=== PATIENT | male | born 1945 | race Caucasian/White ===

== ENCOUNTER → 2023-10-25 09:18 | Day surgery (SDC) | payer MEDICARE, BC, SELFPAY ==
[2023-10-25 10:22] LABS: Glucose - Point of Care 176 mg/dl (70-99)
== END ==
LOC: CATH 09:18
PROVIDERS: ATTENDING PHYSICIAN Internal Medicine; FAMILY PHYSICIAN Internal Medicine; OTHER PHYSICIAN Internal Medicine Cardiovascular Disease
DX: I48.19 Other persistent atrial fibrillation (principal); I48.92 Unspecified atrial flutter; R06.00 Dyspnea, unspecified; I35.0 Nonrheumatic aortic (valve) stenosis; I10 Essential (primary) hypertension; E78.2 Mixed hyperlipidemia; E11.9 Type 2 diabetes mellitus without complications; G47.33 Obstructive sleep apnea (adult) (pediatric); Z79.01 Long term (current) use of anticoagulants
CPT/HCPCS: 82962; 92960; 93005

== ENCOUNTER → 2024-03-06 06:45 | Outpatient (REF) | payer MEDICARE, BC, SELFPAY ==
[2024-03-06 07:57] LABS: % Basophils 0.6 % (0-2); % Eosinophils 3.4 % (0-6); % Immature Granulocytes 2.2 % (0-0.5); % Lymphocytes 14.6 % (20.5-51.1); % Monocytes 10.9 % (1.7-9.3); % Neutrophils 68.3 % (42.2-75.2); Absolute Basophils 0.1 10^3/uL (0-0.2); Absolute Eosinophils 0.3 10^3/uL (0-0.7); Absolute Immature Granulocytes 0.2 10^3/uL (0-0.05); Absolute Lymphocytes 1.1 10^3/uL (1.2-3.4); Absolute Monocytes 0.9 10^3/uL (0.1-0.6); Absolute Neutrophils 5.4 10^3/uL (1.4-6.5); Hematocrit 33.4 % (39.0-52.0); Hemoglobin 11.2 g/dL (13.0-18.0); Mean Corp Hgb Conc. 33.5 g/dL (33.0-37.0); Mean Corpuscular Hgb 31.8 pg (27.0-31.0); Mean Corpuscular Volume 94.9 fL (80.0-94.0); Mean Platelet Volume 11.1 fL (7.4-10.4); Nucleated Red Blood Cells % 0 % (-); Platelet Count 223 10^3/uL (130-400); Red Blood Cell Count 3.52 10^6/uL (4.70-6.10); Red Cell Dist. Width 14.2 % (11.5-14.5); White Blood Cell Count 7.8 10^3/uL (4.8-10.8)
[2024-03-06 08:49] LABS: ALT (SGPT) 27 U/L (0-50); AST (SGOT) 25 U/L (17-59); Albumin 4.4 g/dl (3.5-5.0); Alkaline Phosphatase 98 U/L (38-126); Blood Urea Nitrogen 34 mg/dl (9-20); Calcium 9.6 mg/dl (8.4-10.2); Carbon Dioxide 19 mmol/L (22-30); Chloride 110 mmol/L (98-107); Glucose 120 mg/dl (70-99); HDL Cholesterol 35 mg/dl; LDL Cholesterol, Calculated 64 mg/dl; Potassium 4.2 mmol/L (3.5-5.1); Sodium 142 mmol/L (135-145); Total Bilirubin 0.9 mg/dl (0.2-1.3); Total Cholesterol 111 mg/dl (50-199); Total Protein 7.5 g/dl (6.3-8.2); Triglyceride 63 mg/dl (10-149); Very Low Density Lipoprotein 12 mg/dl (0-30); eGFR > 60.00
[2024-03-06 09:34] LABS: Glycohemoglobin (HgbA1c) 6.8 % (4.0-5.6)
[2024-03-07 11:31] LABS: PSA Total 0.6 ng/mL (0.0-4.0)
== END ==
LOC: REG 06:45
PROVIDERS: ATTENDING PHYSICIAN Internal Medicine
DX: E11.9 Type 2 diabetes mellitus without complications (principal); D64.9 Anemia, unspecified; E78.2 Mixed hyperlipidemia; C61 Malignant neoplasm of prostate
CPT/HCPCS: 36415; 80053; 80061; 82728; 83036; 84153; 84154; 85025

== ENCOUNTER → 2024-06-24 06:36 | Outpatient (REF) | payer MEDICARE, BC, SELFPAY ==
[2024-06-24 07:38] LABS: % Basophils 0.8 % (0-2); % Immature Granulocytes 3.6 % (0-0.5); % Lymphocytes 16.2 % (20.5-51.1); % Monocytes 11.7 % (1.7-9.3); % Neutrophils 64.7 % (42.2-75.2); Absolute Basophils 0.1 10^3/uL (0-0.2); Absolute Eosinophils 0.3 10^3/uL (0-0.7); Absolute Immature Granulocytes 0.3 10^3/uL (0-0.05); Absolute Lymphocytes 1.3 10^3/uL (1.2-3.4); Absolute Neutrophils 5.3 10^3/uL (1.4-6.5); Hematocrit 31.5 % (39.0-52.0); Hemoglobin 10.4 g/dL (13.0-18.0); Mean Corpuscular Hgb 32.1 pg (27.0-31.0); Mean Corpuscular Volume 97.2 fL (80.0-94.0); Mean Platelet Volume 11.2 fL (7.4-10.4); Nucleated Red Blood Cells % 0 % (-); Platelet Count 247 10^3/uL (130-400); Red Blood Cell Count 3.24 10^6/uL (4.70-6.10); Red Cell Dist. Width 13.7 % (11.5-14.5); White Blood Cell Count 8.3 10^3/uL (4.8-10.8)
[2024-06-24 08:08] LABS: AST (SGOT) 30 U/L (17-59); Albumin 4.4 g/dl (3.5-5.0); Alkaline Phosphatase 93 U/L (38-126); Blood Urea Nitrogen 48 mg/dl (9-20); Calcium 9.8 mg/dl (8.4-10.2); Carbon Dioxide 18 mmol/L (22-30); Chloride 108 mmol/L (98-107); Glucose 131 mg/dl (70-99); HDL Cholesterol 31 mg/dl; LDL Cholesterol, Calculated 77 mg/dl; Potassium 5.6 mmol/L (3.5-5.1); Sodium 143 mmol/L (135-145); Total Bilirubin 0.9 mg/dl (0.2-1.3); Total Cholesterol 127 mg/dl (50-199); Total Protein 7.5 g/dl (6.3-8.2); Triglyceride 96 mg/dl (10-149); Very Low Density Lipoprotein 19 mg/dl (0-30); eGFR 51.13
[2024-06-24 08:19] LABS: ALT (SGPT) 28 U/L (0-50)
[2024-06-24 08:45] LABS: Microalbumin, Random Urine 2.1 mg/dl (0.6-1.7); Microalbumin/creatinine Ratio 26.4 mg/g
[2024-06-24 11:28] LABS: Glycohemoglobin (HgbA1c) 6.4 % (4.0-5.6)
== END ==
LOC: REG 06:36
PROVIDERS: ATTENDING PHYSICIAN Internal Medicine; REFERRING PHYSICIAN Student in an Organized Health Care Education/Training Program
DX: I10 Essential (primary) hypertension (principal); E11.9 Type 2 diabetes mellitus without complications; E78.2 Mixed hyperlipidemia; D64.9 Anemia, unspecified
CPT/HCPCS: 36415; 80053; 80061; 82043; 82570; 82728; 83036; 85025

== ENCOUNTER → 2024-08-01 07:38 | Outpatient (REF) | payer MEDICARE, BC, SELFPAY ==
[2024-08-01 09:46] LABS: % Basophils 0.8 % (0-2); % Immature Granulocytes 2.4 % (0-0.5); % Lymphocytes 15.3 % (20.5-51.1); % Monocytes 11.9 % (1.7-9.3); % Neutrophils 66.6 % (42.2-75.2); Absolute Basophils 0.1 10^3/uL (0-0.2); Absolute Eosinophils 0.2 10^3/uL (0-0.7); Absolute Immature Granulocytes 0.2 10^3/uL (0-0.05); Absolute Lymphocytes 1.1 10^3/uL (1.2-3.4); Absolute Monocytes 0.9 10^3/uL (0.1-0.6); Absolute Neutrophils 4.9 10^3/uL (1.4-6.5); Hematocrit 30.6 % (39.0-52.0); Hemoglobin 10.3 g/dL (13.0-18.0); Mean Corp Hgb Conc. 33.7 g/dL (33.0-37.0); Mean Corpuscular Hgb 33.9 pg (27.0-31.0); Mean Corpuscular Volume 100.7 fL (80.0-94.0); Mean Platelet Volume 11.7 fL (7.4-10.4); Nucleated Red Blood Cells % 0 % (-); Platelet Count 209 10^3/uL (130-400); Red Blood Cell Count 3.04 10^6/uL (4.70-6.10); Red Cell Dist. Width 13.3 % (11.5-14.5); Reticulocyte Count 1.5 % (0.4-2.8); White Blood Cell Count 7.4 10^3/uL (4.8-10.8)
[2024-08-01 10:55] LABS: Erythrocyte Sed Rate 60 mm/hour (0-20)
[2024-08-01 11:49] LABS: ALT (SGPT) 31 U/L (0-50); AST (SGOT) 30 U/L (17-59); Albumin 4.2 g/dl (3.5-5.0); Alkaline Phosphatase 93 U/L (38-126); Direct Bilirubin 0.2 mg/dl (0.0-0.4); LDH 167 U/L (120-246); Total Bilirubin 0.6 mg/dl (0.2-1.3); Total Protein 7.1 g/dl (6.3-8.2)
[2024-08-01 12:46] LABS: Folate > 20.0 ng/ml (2.76-20); Vitamin B12 588 pg/ml (239-931)
[2024-08-02 11:43] LABS: Erythropoietin (EPO) 7 mU/mL (4-27)
[2024-08-02 22:23] LABS: Haptoglobin 135 mg/dL (30-200)
[2024-08-04 10:07] LABS: Methylmalonic Acid 0.29 umol/L (0.00-0.40)
== END ==
LOC: REG 07:38
PROVIDERS: ATTENDING PHYSICIAN Internal Medicine Hematology & Oncology; FAMILY PHYSICIAN Internal Medicine; REFERRING PHYSICIAN Student in an Organized Health Care Education/Training Program
DX: D64.9 Anemia, unspecified (principal); Z79.899 Other long term (current) drug therapy
CPT/HCPCS: 36415; 80076; 82607; 82668; 82746; 83010; 83615; 83921; 85025; 85045; 85652; 86880

== ENCOUNTER → 2024-08-02 09:30 | Day surgery (SDC) | payer MEDICARE, BC, SELFPAY | LOC: CATH 09:30 | PROVIDERS: ATTENDING PHYSICIAN Student in an Organized Health Care Education/Training Program; FAMILY PHYSICIAN Internal Medicine | DX: I48.19 Other persistent atrial fibrillation (principal); I10 Essential (primary) hypertension; E78.2 Mixed hyperlipidemia; I35.0 Nonrheumatic aortic (valve) stenosis; E11.9 Type 2 diabetes mellitus without complications; G47.33 Obstructive sleep apnea (adult) (pediatric); N40.0 Benign prostatic hyperplasia without lower urinary tract symptoms; Z87.891 Personal history of nicotine dependence; Z79.01 Long term (current) use of anticoagulants | CPT/HCPCS: 92960; 93005 ==

== ENCOUNTER → 2024-08-06 12:42 | Outpatient (REF) | payer MEDICARE, BC, SELFPAY | LOC: RCS 12:42 | PROVIDERS: ATTENDING PHYSICIAN Student in an Organized Health Care Education/Training Program; FAMILY PHYSICIAN Internal Medicine | DX: I35.0 Nonrheumatic aortic (valve) stenosis (principal); I50.32 Chronic diastolic (congestive) heart failure | CPT/HCPCS: 93017; 93350 ==

== ENCOUNTER → 2024-08-17 07:30 | Outpatient (REF) | payer MEDICARE, BC, SELFPAY ==
[2024-08-17 08:34] LABS: Blood Urea Nitrogen 53 mg/dl (9-20); Calcium 9.5 mg/dl (8.4-10.2); Carbon Dioxide 20 mmol/L (22-30); Chloride 103 mmol/L (98-107); Glucose 160 mg/dl (70-99); Potassium 5.3 mmol/L (3.5-5.1); Sodium 138 mmol/L (135-145); eGFR 43.56
== END ==
LOC: REG 07:30
PROVIDERS: ATTENDING PHYSICIAN Nurse Practitioner; FAMILY PHYSICIAN Internal Medicine; REFERRING PHYSICIAN Nurse Practitioner Adult Health
DX: I10 Essential (primary) hypertension (principal); R06.02 Shortness of breath
CPT/HCPCS: 36415; 71046; 80048

== ENCOUNTER → 2024-08-26 06:45 | Outpatient (REF) | payer MEDICARE, BC, SELFPAY ==
[2024-08-26 07:52] LABS: Blood Urea Nitrogen 49 mg/dl (9-20); Calcium 9.2 mg/dl (8.4-10.2); Carbon Dioxide 17 mmol/L (22-30); Chloride 109 mmol/L (98-107); Glucose 134 mg/dl (70-99); Potassium 5.3 mmol/L (3.5-5.1); Sodium 141 mmol/L (135-145); eGFR 43.56
== END ==
LOC: REG 06:45
PROVIDERS: ATTENDING PHYSICIAN Nurse Practitioner; FAMILY PHYSICIAN Internal Medicine
DX: I48.0 Paroxysmal atrial fibrillation (principal)
CPT/HCPCS: 36415; 80048

== ENCOUNTER → 2024-10-15 06:48 | Outpatient (REF) | payer MEDICARE, BC, SELFPAY ==
[2024-10-15 07:37] LABS: % Eosinophils 3.1 % (0-6); % Immature Granulocytes 1.6 % (0-0.5); % Lymphocytes 11.4 % (20.5-51.1); % Monocytes 9.4 % (1.7-9.3); % Neutrophils 73.5 % (42.2-75.2); Absolute Basophils 0.1 10^3/uL (0-0.2); Absolute Eosinophils 0.3 10^3/uL (0-0.7); Absolute Immature Granulocytes 0.1 10^3/uL (0-0.05); Absolute Lymphocytes 0.9 10^3/uL (1.2-3.4); Absolute Monocytes 0.8 10^3/uL (0.1-0.6); Absolute Neutrophils 5.9 10^3/uL (1.4-6.5); Hematocrit 30.9 % (39.0-52.0); Hemoglobin 10.1 g/dL (13.0-18.0); Mean Corp Hgb Conc. 32.7 g/dL (33.0-37.0); Mean Corpuscular Hgb 31.4 pg (27.0-31.0); Mean Platelet Volume 11.1 fL (7.4-10.4); Nucleated Red Blood Cells % 0 % (-); Platelet Count 265 10^3/uL (130-400); Red Blood Cell Count 3.22 10^6/uL (4.70-6.10); Red Cell Dist. Width 13.1 % (11.5-14.5)
[2024-10-15 07:50] LABS: ALT (SGPT) 43 U/L (0-50); AST (SGOT) 23 U/L (17-59); Albumin 4.1 g/dl (3.5-5.0); Alkaline Phosphatase 115 U/L (38-126); Blood Urea Nitrogen 33 mg/dl (9-20); Calcium 9.2 mg/dl (8.4-10.2); Carbon Dioxide 21 mmol/L (22-30); Chloride 107 mmol/L (98-107); Glucose 153 mg/dl (70-99); HDL Cholesterol 34 mg/dl; LDL Cholesterol, Calculated 69 mg/dl; Potassium 4.7 mmol/L (3.5-5.1); Sodium 141 mmol/L (135-145); Total Bilirubin 0.8 mg/dl (0.2-1.3); Total Cholesterol 114 mg/dl (50-199); Total Protein 7.2 g/dl (6.3-8.2); Triglyceride 58 mg/dl (10-149); Very Low Density Lipoprotein 11 mg/dl (0-30); eGFR > 60.00
[2024-10-15 08:20] LABS: TSH Reflex To Free T4 3.24 uIU/ml (0.47-4.68)
[2024-10-15 09:56] LABS: Glycohemoglobin (HgbA1c) 6.2 % (4.0-5.6)
== END ==
LOC: REG 06:48
PROVIDERS: ATTENDING PHYSICIAN Internal Medicine; OTHER PHYSICIAN Student in an Organized Health Care Education/Training Program; REFERRING PHYSICIAN Internal Medicine Hematology & Oncology
DX: E11.9 Type 2 diabetes mellitus without complications (principal); I10 Essential (primary) hypertension; D64.9 Anemia, unspecified; E66.9 Obesity, unspecified; E78.5 Hyperlipidemia, unspecified
CPT/HCPCS: 36415; 80053; 80061; 82728; 83036; 84443; 85025

== ENCOUNTER → 2025-02-11 06:50 | Outpatient (REF) | payer MEDICARE, BC, SELFPAY ==
[2025-02-11 08:04] LABS: % Basophils 0.9 % (0-2); % Immature Granulocytes 1.7 % (0-0.5); % Lymphocytes 10.5 % (20.5-51.1); % Neutrophils 72.9 % (42.2-75.2); Absolute Basophils 0.1 10^3/uL (0-0.2); Absolute Eosinophils 0.4 10^3/uL (0-0.7); Absolute Immature Granulocytes 0.2 10^3/uL (0-0.05); Absolute Lymphocytes 0.9 10^3/uL (1.2-3.4); Absolute Monocytes 0.9 10^3/uL (0.1-0.6); Absolute Neutrophils 6.4 10^3/uL (1.4-6.5); Hematocrit 29.4 % (39.0-52.0); Hemoglobin 9.7 g/dL (13.0-18.0); Mean Corpuscular Hgb 30.9 pg (27.0-31.0); Mean Corpuscular Volume 93.6 fL (80.0-94.0); Mean Platelet Volume 11.5 fL (7.4-10.4); Nucleated Red Blood Cells % 0 % (-); Platelet Count 274 10^3/uL (130-400); Red Blood Cell Count 3.14 10^6/uL (4.70-6.10); Red Cell Dist. Width 15.4 % (11.5-14.5); White Blood Cell Count 8.7 10^3/uL (4.8-10.8)
[2025-02-11 08:34] LABS: ALT (SGPT) 43 U/L (0-50); AST (SGOT) 23 U/L (17-59); Albumin 3.8 g/dl (3.5-5.0); Alkaline Phosphatase 98 U/L (38-126); Blood Urea Nitrogen 30 mg/dl (9-20); Calcium 9.4 mg/dl (8.4-10.2); Carbon Dioxide 21 mmol/L (22-30); Chloride 110 mmol/L (98-107); Glucose 140 mg/dl (70-99); HDL Cholesterol 32 mg/dl; LDL Cholesterol, Calculated 55 mg/dl; Potassium 5.1 mmol/L (3.5-5.1); Sodium 141 mmol/L (135-145); Total Bilirubin 0.9 mg/dl (0.2-1.3); Total Cholesterol 97 mg/dl (50-199); Triglyceride 50 mg/dl (10-149); Very Low Density Lipoprotein 10 mg/dl (0-30); eGFR > 60.00
[2025-02-11 09:14] LABS: TSH Reflex To Free T4 3.65 uIU/ml (0.47-4.68)
[2025-02-11 09:49] LABS: Glycohemoglobin (HgbA1c) 6.6 % (4.0-5.6)
== END ==
LOC: REG 06:50
PROVIDERS: ATTENDING PHYSICIAN Internal Medicine; OTHER PHYSICIAN Internal Medicine Hematology & Oncology; OTHER PHYSICIAN Student in an Organized Health Care Education/Training Program
DX: I10 Essential (primary) hypertension (principal); E11.9 Type 2 diabetes mellitus without complications; D64.9 Anemia, unspecified; I48.0 Paroxysmal atrial fibrillation; Z23 Encounter for immunization; E78.00 Pure hypercholesterolemia, unspecified
CPT/HCPCS: 36415; 80053; 80061; 82728; 83036; 84443; 85025

== ENCOUNTER 2025-02-21 10:21 | Day surgery (SDC) | payer MEDICARE, BC, SELFPAY ==
[2025-02-21] VITALS (12 sets, daily range): BP systolic 120–145; BP diastolic 56–76; BMI 31.7
[2025-02-21 11:04] LABS: Glucose - Point of Care 137 mg/dl (70-99)
--- NOTE | 2025-02-21 17:06 | PTCARENOTE ---
Pt refusing ordered Lasix. notified.
[2025-02-21] MEDS: LASIX 40 MG IV (17:17)
--- NOTE | 2025-02-21 18:58 | ITS.CL.PN ---
Clock Maker - Procedure Note
Procedure
Procedure Note:
CARDIAC CATHETERIZATION REPORT
Date of Procedure: 02/21/2025
Referring: Dr. Leslye Webster MD
Indication: progressive dyspnea on exertion
PROCEDURE(S)
1. right heart catheterization
2. left heart catheterization
3. coronary angiography
ACCESS
1. 6F right radial artery (closure: radial band)
2. 5F right antecubital vein (closure: manual hemostasis)
CATHETERS
1. 5F Pioneer-Katelynn
2. 6F AL1
3. 6F JL3.5
4. EBU3.5 guide
5. JR4 guide
MODERATE SEDATION: 45 minutes of moderate sedation was utilized. An independent medical transport specialist was present to assist with and help manage the patient's level of consciousness and physiologic status.
HEMODYNAMIC DATA
LV 157/16 (EDP 30) mmHg
AO 135/58 (mean 86) mmHg
RA 15 mmHg
PA 73/30 (mean 47) mmHg
PCWP 40 (v-waves to 69) mmHg
SaO2 97.7%
SvO2 61.4%
Hb 9.6 g/dL
CO/CI 6.00/2.64 L/min/m2
SVR 946 dsc*-5
PVR 1.2 Wood units
Valve study: Mean gradient 28.7 mmHg (SVI 51 mL/m2, HR 51), giving AKIL 1.41 mm2
CORONARY ANGIOGRAPHY
Dominance: Right
LM: Large vessel with a approximately 50% calcific stenosis in the distal left main involving the distal left main bifurcation. It is unclear angiographically if this complex calcific stenosis is in the distal left main alone or also involves the
ostium of one or both of the branch vessels.
LAD: Large vessel giving rise to a large D1 and medium caliber D2 before wrapping around the apex. There is mild to moderate diffuse disease.
LCx: Large vessel giving rise to a very large high rising OM1/ramus and large OM2. There appears to be a focal stenosis at the ostium of the OM1 that is difficult to isolate angiographically. There is mild to moderate diffuse disease otherwise.
RCA: Large vessel giving rise to a medium caliber RPDA and 2 small RPL branches. There is heavily calcified moderate disease at the ostium with mild pressure dampening. There is a focal 40% stenosis in the mid vessel and otherwise mild disease.
IVUS of LCx
An [place] [facility] IVUS catheter was advanced to the left main and ringdown performed. The catheter was advanced to the mid circumflex and pullback performed. A concentrically calcific stenosis with a MLA of 6-7 mm2 was measured in the distal left main to
ostial circumflex.
IVUS of OM1
The the wire was redirected to the OM1 and the catheter was advanced to the OM1 and pullback performed. A calcific stenosis with MLA of 5 mm2 was measured at the ostium of the OM1.
IVUS of LAD
The wire was redirected to the LAD and the catheter was advanced to the LAD and pullback performed. A concentrically calcific stenosis with a MLA of 6-7 mm� was measured in the distal left main to ostial LAD.
iFR of ostial RCA
An V[place]ata wire was flushed and zeroed outside the body and then advanced to the tip of the guide with the guide disengaged just outside the ostium of the RCA. The wire introducer was removed and the catheter flushed with saline, after which
pressure of the wire and guide were normalized. The wire was advanced to the proximal RCA and care taken to ensure that the guide remained disengaged. iFR recorded at 0.94. On return to the aorta with the guide disengaged, iFR appropriately
normalized to ~1.0, confirming lack of wire drift.
RADIATION: dose 1508 mGy; DAP 132 Gy*cm2; fluoroscopy time 25.5 min
CONCLUSIONS
1. Severely elevated biventricular filling pressure, severe postcapillary pulmonary hypertension, and normal cardiac output
2. Moderate aortic stenosis
3. Coronary artery disease as described with complex distal left main calcific stenosis interrogated by IVUS with MLA of both the circumflex and LAD back to the left main in the range of 6 to 7 mm�, does not meeting criteria for significance.
4. Coronary artery disease as described with ostial RCA stenosis with mild pressure dampening confirmed by IFR to be hemodynamically nonsignificant.
RECOMMENDATIONS
1. The diagnostic studies performed above suggest the most likely etiology of the patient's progressive dyspnea on exertion is his severely elevated LV filling pressure and postcapillary pulmonary hypertension.
2. Aortic valve stenosis and coronary disease do not appear to be significant contributors at this time but will require close monitoring and aggressive preventative therapy, respectively.
3. Will increase diuretic to 40 mg daily. Will require further titration of GDMT for HFpEF as outpatient.
4. Very high V waves on wedge pressure tracing suggestive of possible MR. Recommend repeating baseline echocardiogram
5. Aggressive secondary prevention of coronary artery disease. Will initiate high intensity statin for goal LDL less than 70.
Copy to: Dr. Leslye Webster MD (yarn examiner skeins); Dr. Darling Zhang MD (PCP)
Signed: Homer Kenny MD, PhD
[2025-02-26 08:22] LABS: ACT-LR - POC 223 Seconds (116-155)
== END 2025-02-21 17:45 | disposition home or self-care (01) ==
LOC: CATH 10:21
PROVIDERS: ATTENDING PHYSICIAN Student in an Organized Health Care Education/Training Program; FAMILY PHYSICIAN Internal Medicine; OTHER PHYSICIAN Student in an Organized Health Care Education/Training Program
DX: I25.10 Atherosclerotic heart disease of native coronary artery without angina pectoris (principal); R06.09 Other forms of dyspnea; I35.0 Nonrheumatic aortic (valve) stenosis; I27.29 Other secondary pulmonary hypertension; I25.84 Coronary atherosclerosis due to calcified coronary lesion; I48.19 Other persistent atrial fibrillation; I10 Essential (primary) hypertension; E11.9 Type 2 diabetes mellitus without complications; I50.32 Chronic diastolic (congestive) heart failure; Z79.01 Long term (current) use of anticoagulants; Z79.899 Other long term (current) drug therapy
CPT/HCPCS: 92978; 92979; 99152; 99153; 93799; 82962; 85347; 93460; C1753; C1769; C1887; C1894; Q9967

== ENCOUNTER → 2025-02-28 08:59 | Outpatient (REF) | payer MEDICARE, BC, SELFPAY ==
[2025-02-28 10:37] LABS: Blood Urea Nitrogen 47 mg/dl (9-20); Calcium 9.4 mg/dl (8.4-10.2); Carbon Dioxide 19 mmol/L (22-30); Chloride 111 mmol/L (98-107); Glucose 150 mg/dl (70-99); Potassium 4.9 mmol/L (3.5-5.1); Sodium 140 mmol/L (135-145); eGFR 43.56
== END ==
LOC: REG 08:59
PROVIDERS: ATTENDING PHYSICIAN Student in an Organized Health Care Education/Training Program; FAMILY PHYSICIAN Internal Medicine; REFERRING PHYSICIAN Student in an Organized Health Care Education/Training Program
DX: I27.20 Pulmonary hypertension, unspecified (principal); I25.9 Chronic ischemic heart disease, unspecified
CPT/HCPCS: 36415; 80048

== ENCOUNTER → 2025-03-07 12:55 | Outpatient (REF) | payer MEDICARE, BC, SELFPAY | LOC: RCS 12:55 | PROVIDERS: ATTENDING PHYSICIAN Student in an Organized Health Care Education/Training Program; FAMILY PHYSICIAN Internal Medicine | DX: I50.32 Chronic diastolic (congestive) heart failure (principal) | CPT/HCPCS: 93306 ==

== ENCOUNTER → 2025-03-17 10:13 | Outpatient (REF) | payer MEDICARE, BC, SELFPAY ==
[2025-03-17 11:56] LABS: Blood Urea Nitrogen 49 mg/dl (9-20); Calcium 9.5 mg/dl (8.4-10.2); Carbon Dioxide 19 mmol/L (22-30); Chloride 110 mmol/L (98-107); Glucose 188 mg/dl (70-99); Potassium 5.5 mmol/L (3.5-5.1); Sodium 141 mmol/L (135-145); eGFR 47.06
== END ==
LOC: REG 10:13
PROVIDERS: ATTENDING PHYSICIAN Student in an Organized Health Care Education/Training Program; FAMILY PHYSICIAN Internal Medicine
DX: I50.32 Chronic diastolic (congestive) heart failure (principal)
CPT/HCPCS: 36415; 80048

== ENCOUNTER → 2025-03-20 06:54 | Outpatient (REF) | payer MEDICARE, BC, SELFPAY ==
[2025-03-20 07:50] VITALS: BP 130/61; BP_SYST 56
[2025-03-20 08:01] LABS: % Basophils 0.7 % (0-2); % Eosinophils 2.6 % (0-6); % Immature Granulocytes 1.8 % (0-0.5); % Lymphocytes 11.1 % (20.5-51.1); % Monocytes 11.6 % (1.7-9.3); % Neutrophils 72.2 % (42.2-75.2); Absolute Basophils 0.1 10^3/uL (0-0.2); Absolute Eosinophils 0.2 10^3/uL (0-0.7); Absolute Immature Granulocytes 0.2 10^3/uL (0-0.05); Absolute Lymphocytes 0.9 10^3/uL (1.2-3.4); Hematocrit 31.4 % (39.0-52.0); Hemoglobin 10.4 g/dL (13.0-18.0); Mean Corp Hgb Conc. 33.1 g/dL (33.0-37.0); Mean Corpuscular Hgb 30.9 pg (27.0-31.0); Mean Corpuscular Volume 93.2 fL (80.0-94.0); Mean Platelet Volume 11.2 fL (7.4-10.4); Nucleated Red Blood Cells % 0 % (-); Platelet Count 215 10^3/uL (130-400); Red Blood Cell Count 3.37 10^6/uL (4.70-6.10); Red Cell Dist. Width 15.7 % (11.5-14.5); White Blood Cell Count 8.4 10^3/uL (4.8-10.8)
[2025-03-20 08:04] LABS: INR 1.23
[2025-03-20] MEDS: NSS (PRESERVATIVE FREE) 0.25 ML IV (08:13)
[2025-03-20] MEDS: ATIVAN 0.5 MG IV (08:13)
[2025-03-20 09:12] VITALS: BP 133/62; BP_SYST 55
== END ==
LOC: RADI 06:54
PROVIDERS: ATTENDING PHYSICIAN Internal Medicine Hematology & Oncology; FAMILY PHYSICIAN Internal Medicine
DX: D64.9 Anemia, unspecified (principal)
CPT/HCPCS: 88305; 88311; 88312; 36415; 38222; 77012; 85025; 85610; 88313

== ENCOUNTER → 2025-04-03 09:06 | Outpatient (REF) | payer MEDICARE, BC, SELFPAY | LOC: RAD 09:06 | PROVIDERS: ATTENDING PHYSICIAN Student in an Organized Health Care Education/Training Program; FAMILY PHYSICIAN Internal Medicine | DX: I35.0 Nonrheumatic aortic (valve) stenosis (principal) | CPT/HCPCS: 74174; 75572; Q9967 ==

== ENCOUNTER → 2025-04-29 09:37 | Outpatient (REF) | payer MEDICARE, BC, SELFPAY ==
[2025-04-29 10:18] LABS: Hematocrit 31.3 % (39.0-52.0); Hemoglobin 10.3 g/dL (13.0-18.0); Mean Corp Hgb Conc. 32.9 g/dL (33.0-37.0); Mean Corpuscular Volume 94.8 fL (80.0-94.0); Nucleated Red Blood Cells % 0 % (-); Platelet Count 187 10^3/uL (130-400); Red Cell Dist. Width 15.5 % (11.5-14.5)
[2025-04-29 10:40] LABS: Iron 77 ug/dl (49-181)
[2025-04-29 10:52] LABS: Total Iron Binding Capacity 333 ug/dl (261-462)
[2025-04-29 11:17] LABS: Ferritin 317.0 ng/ml (17.9-464.0)
== END ==
LOC: REG 09:37
PROVIDERS: ATTENDING PHYSICIAN Internal Medicine Hematology & Oncology; FAMILY PHYSICIAN Internal Medicine
DX: D64.9 Anemia, unspecified (principal)
CPT/HCPCS: 36415; 82668; 82728; 83540; 83550; 85025

== ENCOUNTER 2025-05-15 05:32 | Inpatient (IN) | payer MEDICARE, BC, SELFPAY ==
--- NOTE | 2025-05-05 16:00 | HPS.HSE ---
Family Physician
-
Family Physician: Darling Zhang
Chief Complaint
-
LAST
PreTAVR evaluation
History of Present Illness
Mr. Bunn is a very pleasant 80yom with a past medical history signiicant for , Persistent AF, HTN, HLD, anemia, T2DM, HFpEF, and JIMMIE (CPAP). His most recent echocardiogram from 03/07/2025 is notable for an EF 60-65%, AV� P/M 66/42, AKIL 1.1,
mild-moderate MR, pk radha 4.06, MAC, mild MR, mild TR, PAP 47. Cardiac catheterization from 02/21/2025 demonstrated Severely elevated biventricular filling pressure, severe postcapillary pulmonary hypertension, and normal cardiac output.�Moderate
aortic stenosis. Coronary artery disease as described with complex distal left main calcific stenosis interrogated by IVUS with MLA of both the circumflex and LAD back to the left main in the range of 6 to 7 mm2, does not meeting criteria for
significance.�Coronary artery disease as described with ostial RCA stenosis with mild pressure dampening confirmed by IFR to be hemodynamically nonsignificant. From a symptomatology standpoint, patient describes LAST. Discussed the pathophysiology
and treatment options of including SAVR and TAVR. Explained the need for dental clearance and informed patient he will need antibiotic prophylaxis before any dental procedure once he has AVR.
Assessed patient in preadmission testing and confirmed medication list. Last dose of Farxiga Monday (05/11), last dose Eliquis Monday (05/12), Aspirin 325 mg Monday (05/13), aspirin 81 mg Monday (05/14) and (05/15). He will arrive to the [facility] at 0530. Reviewed the risks of the procedure as discussed in consult with Dr. Gloria including PPM, vascular injury, and stroke. Allowed for and answered questions to the best of my ability.
Medical History
Past Medical History
Past Medical History: Reports Arrhythmia (afib), Cancer (squamous cell), HTN, Hypercholesterolemia, NIDDM, [place], Valvular Disease (aortic stenosis) and Other (pneumonia, JIMMIE, DJD, anemia, BPH, former smoker, UTI, diverticulosis, gout)
Past Surgical History: Reports Orthopedic (right total knee,) and Other (cardiac ablation, bone marrow bx, DCCV, corneal transplant )
Social History
Tobacco: Former Smoker
Alcohol: Occasional
Drug: None
Family History
Family History: Not pertinent
Allergies / Home Medications
Allergies reflects when Allergies were last updated in [employer].
tetracycline
Home Medications with original date entered in [employer]
Acyclovir 400 MG Tablet take 1 tablet by oral route 2 times daily Orally
Allopurinol 100 MG Tablet 3 tabs Orally Once a day , Notes to Pharmacist: 3 xagl=[id number]
amLODIPine Besylate 5 MG Tablet 1 tablet Orally Once a day
Cialis(Tadalafil) 5 MG Tablet 1 tablet Orally Once a day , stop date 10/12/2025
CPAP , Notes to Pharmacist: Q
Dofetilide 250 MCG Capsule 1 capsule Orally Twice a day
Eliquis(Apixaban) 5 MG Tablet take 1 tablet Oral Twice a Day
Erythromycin 2 % Solution 1 application Externally Once a day
Farxiga(Dapagliflozin Propanediol) 10 MG Tablet 1 tablet Orally Once a day
Fiber 625 MG Tablet 2 tablets as needed Orally Three times a day
Irbesartan 300 MG Tablet 1 tablet Orally Once a day
Labetalol HCl 200 MG Tablet 1 tablet Orally Twice a day
Lasix(Furosemide) 20 MG Tablet 1 to 2 tablets Oral Once a day
Moxifloxacin HCl 0.5 % Solution 1 drop into affected eye Ophthalmic Three times a day
Multivitamin(Multiple Vitamin) - Tablet 1 tablet Orally Once a day
prednisoLONE Sodium Phosphate 1 % Milliliter instill 1 drop by ophthalmic route into both eyes daily Ophthalmic Three Times a Day
Probiotic 250 MG Capsule as directed Orally
Simvastatin 5 MG Tablet 2 tablets in the evening Orally Once a day
Spironolactone 25 MG Tablet 1/2 Orally Once a day
Travatan Z 0.004 % instill 1 drop by ophthalmic route every day into both eye(s) in the evening Ophthalmic
Vitamin B12 1000 MCG Tablet as directed OrallyZirgan(Ganciclovir) 0.15 % Gel 1 drop OD Ophthalmic Once a day , Notes to Pharmacist: Rt. eye
Allergy/Medication List:
tetracycline
Review of Systems
-
A 12 point ROS was completed and negative except as noted: Yes
EENT: Reports Other
Respiratory: Reports Other (LAST)
Physical Exam
Physical Exam
General: Well Developed, Well Nourished, No Apparent Distress and Comfortable
HEENT: NormoCephalic
Respiratory: Clear
Cardiac: Murmur (III/ PAUL)
Breast: Deferred by me
GI: Soft, Non Tender, Non Distended and Normal Bowel Sounds
Rectal: Deferred by Provider
Genito-urinary: Deferred by me
Musculoskeletal: No Edema
Skin: Warm and Dry
Neuro: Awake, Alert, Oriented and AO x 3
Psych: Calm
Data Reviewed
-
CT Scan: Report Reviewed by me and Discussed with Physician (TAVR CT scan reviewed with the heart team)
Medical Tests (Nuc Med, Echo, EKG etc): Report Reviewed by me and Discussed with Physician (cardiac catheterization and echocardiogram reviewed with the heart team)
Lab Data: Labs Reviewed by me
Old Records: Reviewed
Impression/Plan
-
IMPRESSION/PLAN:
Aortic Stenosis
TF TAVR planned with India Gloria and Efraín utilizing a 29mm S3
Eliquis will be held x 48 hours
Aspirin will be initiated while Eliquis held and d/c when Eliquis resumed
POD#1/#30 echocardiogram
Cardiac rehab consult.
Labs
-
Labs:
WBC 7.2 10^3/uL (4.8-10.8) 05/06/25 10:00
RBC 3.55 10^6/uL (4.70-6.10) L 05/06/25 10:00
Hgb 11.0 g/dL (13.0-18.0) L 05/06/25 10:00
Hct 33.7 % (39.0-52.0) L 05/06/25 10:00
Plt Count 229 10^3/uL (130-400) 05/06/25 10:00
Sodium 136 mmol/L (135-145) 05/06/25 10:00
Potassium 5.1 mmol/L (3.5-5.1) 05/06/25 10:00
Chloride 108 mmol/L (98-107) H 05/06/25 10:00
Carbon Dioxide 20 mmol/L (22-30) L 05/06/25 10:00
BUN 44 mg/dl (9-20) H 05/06/25 10:00
Creatinine 1.4 mg/dL (0.7-1.3) H 05/06/25 10:00
eGFR 50.81 05/06/25 10:00
Glucose 150 mg/dl (70-99) H 05/06/25 10:00
Calcium 9.2 mg/dl (8.4-10.2) 05/06/25 10:00
Cxv-Q-Hojbjwssvkq Pept 563 pg/ml 05/06/25 10:00
Albumin 4.4 g/dl (3.5-5.0) 05/06/25 10:00
[2025-05-06 10:26] LABS: Hematocrit 33.7 % (39.0-52.0); Hemoglobin 11.0 g/dL (13.0-18.0); Mean Corp Hgb Conc. 32.6 g/dL (33.0-37.0); Mean Corpuscular Volume 94.9 fL (80.0-94.0); Nucleated Red Blood Cells % 0 % (-); Platelet Count 229 10^3/uL (130-400); Red Cell Dist. Width 15.2 % (11.5-14.5)
[2025-05-06 10:35] LABS: Urine Character Clear (Clear)
[2025-05-06 10:39] LABS: INR 1.31; PT 16.8 Sec (11.4-14.6)
[2025-05-06 10:40] LABS: APTT 33.8 Sec (23.4-35.0)
[2025-05-06 10:50] VITALS: BMI 31.2
[2025-05-06 10:51] LABS: Glycohemoglobin (HgbA1c) 6.2 % (4.0-5.6)
[2025-05-06 11:14] LABS: ALT (SGPT) 37 U/L (0-50); AST (SGOT) 26 U/L (17-59); Albumin 4.4 g/dl (3.5-5.0); Alkaline Phosphatase 105 U/L (38-126); Blood Urea Nitrogen 44 mg/dl (9-20); Calcium 9.2 mg/dl (8.4-10.2); Carbon Dioxide 20 mmol/L (22-30); Chloride 108 mmol/L (98-107); Estimated Creatinine Clearance 52 ml/min; Glucose 150 mg/dl (70-99); Potassium 5.1 mmol/L (3.5-5.1); Sodium 136 mmol/L (135-145); Total Protein 7.7 g/dl (6.3-8.2); eGFR 50.81
--- NOTE | 2025-05-06 11:16 | CM ---
spoke to pt in PAT's we discussed preop TAVR teaching including driving and lifting restrictions. he is prev indep lives with his in a 2 story home with no steps to enter. he uesse a CPAp at night and said he will bring in his own mask. he has
the TAVR educ book, soap and instructions, he is agreeable to a f/u visit from the ct transitional care nurse after dc. plan is for TAVR 05/15, cm role explained and all questions answered.
[2025-05-15] VITALS (22 sets, daily range): BP systolic 115–159; BP diastolic 54–70; BMI 30.9
[2025-05-15 06:24] LABS: Glucose - Point of Care 131 mg/dl (70-99)
--- NOTE | 2025-05-15 06:26 | W.CVOR.SURPR ---
CVOR Surgeon Immed Pre Op
-
I have examined this patient prior to performance of the scheduled procedure.
The patient's condition is unchanged from the time of the dictated/written History and
Physical and the patient is able to undergo the scheduled procedure.
TF TAVR
Full Rescue
--- NOTE | 2025-05-15 06:32 | PTCARENOTE ---
Rec'd pt as SDS TAVR admission. Pt verblaizes morning and evening CHG bath. ASA 81mg 430 AM with sip of water and last food intake at 1830 05/14/2025. PT denies any pain or discomfort. Blood sugar 131 and neuro assessment complete. See DEC and
flowchart for full pt care and assessment. TAVR team assessed pt at bedside and DR mariscal saw pt at bedside. Pt awaiting cath team to receive pt.
--- NOTE | 2025-05-15 08:31 | W.PN.CT.SURG ---
Addendum entered and electronically signed by Aakash Gloria MD 05/15/25 08:37:
CORRECTION: the implanted valve was a 29mm nominal MORALES Resilia Abel TAVR Valve
Original Note:
CT Surgery Operative Note
-
OPERATIVE REPORT
Preoperative Diagnosis: Severe aortic valve stenosis, symptomatic
Postoperative Diagnosis: Same
Procedure(s) Performed: Left trans femoral TAVR with a 26 mm nominal Morales TAVR valve
Date of Procedure: 05/15/2025
Comorbidities:
1. Severe aortic stenosis, symptomatic
2. Acute on chronic congestive systolic and diastolic heart failure with LVEDP of 27 pre-TAVR
3. Multivessel coronary artery disease
4. History of paroxysmal atrial fibrillation
5. Type 2 diabetes mellitus
6. Hypertension
7. Hyperlipidemia
8. JIMMIE on CPAP
Cardiac Surgeon: Aakash Gloria MD, MS
Machine Erector: Ramon Kenny MD
Anesthesia: Conscious Sedation and Local Analgesia
EBL: 100cc
Products: none
Implant: 26 mm Morales Resilia TAVR valve, SN: [id number]
Indication(s) for Procedures: 80-year-old male with symptomatic severe aortic stenosis. CT-TAVR protocol revealed acceptable anatomy for TAVR access and implantation.
Start time: 0736hrs
Deployment time: 0805hrs
End time: 0823hrs
Radiation Dose (mGy): 170
DAP (cm2.Gy): 18.9
Fluoroscopy time (minutes): 6.6
Contrast volume (ml): 78
TAVR gradient (mmHg): 4-5mmHg
Heparin Dose: 8500units
Protamine Dose: mg
Final Valve Positionin/15
Findings: Preoperative LVEF was 60% and was 60% following TAVR without inotropic support. Function was overall normal without regional wall motion abnormalities or dyskinesia. The aortic valve was well seated without detectable PVL and mean gradient
across the new valve was 4-5mmHg. After deployment of valve, he regained his sinus rhythm and not requiring additional pacing. His LVEDP was found to be significant elevated to 27 mmHg pre-TAVR deployment. This indicates significant volume
overload requiring Lasix in the perioperative period. There was successful placement of 26 mm nominal TAVR valve without acute complications.
Access:
1. Device -left common femoral artery, perclose x 2
2. Pigtail -right common femoral artery [+ 6Fr angioseal]
3. Transvenous Pacer -right common femoral vein
Description of Procedure: The patient was taken to the gold leaf laborer. Their identity and procedure to be performed were verified and they were positioned supine on the gold leaf laborer table. Induction via conscious sedation. The patient was then prepped and
draped from chin to thigh in a sterile fashion. A preoperative time-out was performed with all members of the team present. Arterial and venous access was performed using fluoroscopy and ultrasound guidance with micropuncture and Seldinger
technique. Two perclose devices were used on the device side followed by access to the aorta with a stiff wire to faciltate E-sheath placement. Heparin was given. A stiff straight wire and AL-1 catheter was used to cross the aortic valve. An LVEDP
was then measured here. The stiff wire was exchanged for an extra stiff coiled tip wire. The valve was prepped and mounted on to the device carrier. An ACT of >250 was achieved. We verified x 3 that the valve was mounted in the correct orientation
with the skirt of the valve directed toward the tip of the device carrier. We advanced the device into the descending thoracic aorta where the valve was them mounted onto the balloon under fluoroscopy. The device was flexed and advanced over the
arch into the root and positioned across the aortic valve. Contrast fluoroscopy was used to visualize the prosthesis across the valve and to guide positioning. A pigtail catheter in the RCC as used as a guide. We aimed to have the bottom of the
device marker at the annular hinge point. The device sheath was pulled back. We performed a quick pre-deployment time out. The pacer was turned on and had capture. Blood pressure fell accordingly, angiography was done to verify the intended final
placement and the valve was deployed with 5 seconds of rapid pacing to nominal volume. The balloon was deflated and the pacer was turned off. We had recovery of vitals. The device carrier was unflexed and positioned back in the descending thoracic
aorta. A transthoracic echocardiogram was performed. The device was removed from the E-Sheath maintaining wire access followed by removal of the E-sheath as we cinched down the perclose devices. There was acceptable hemostasis. The pigtail was
withdrawn into the descending/abdominal and completion aortogram with runoff run-off angiography was performed. There was no stenosis or dissection of bilateral iliofemoral systems. There was acceptable hemostasis of bilateral groins and manual
pressure was held following wire removal. Low dose protamine was administered after checking another ACT.
All instrument, sponge, and needle counts were confirmed to be correct x 2 at the end of the operation. The patient was transferred to the cardiac intensive care unit in stable condition.
I, Dr. Aakash Gloria, was present, scrubbed for, and performed all critical elements of this procedure.
Aakash Gloria MD
Cardiothoracic Surgeon
[facility]
This operative dictation was created using the edulio dictation system. Please excuse any grammatical, typographical, or 'sound alike' errors
--- NOTE | 2025-05-15 08:33 | ITS.CL.PN ---
Harbor Tug Captain - Procedure Note
Procedure
Procedure Note:
TRANSCATHETER AORTIC VALVE REPLACEMENT REPORT
Date of Procedure: 05/15/2025
Referring: Dr. Leslye Webster MD
Indication: symptomatic severe aortic valve stenosis
Operators: Homer Kenny MD, PhD (interventional cardiology); Dr. Aakash Gloria MD (CT surgery)
Anesthesia: conscious sedation provided by the anesthesia staff
PROCEDURE: transfemoral, transcatheter aortic valve replacement with a Baxter MARIANNA S3 Ultra 29 mm valve
ACCESS:
1. 6F right femoral vein (closure: manual hemostasis) - Ultrasound was utilized for vascular access. The vessel was visualized under ultrasound and noted to be patent. An image of the vessel was stored permanently in the patient's medical record.
Under direct ultrasound guidance, vascular access was obtained using a modified Seldinger technique and a 6 Cameroonian sheath was placed.
2. 6F right common femoral artery (closure: Angioseal) - Ultrasound was utilized for vascular access. The vessel was visualized under ultrasound and noted to be patent. An image of the vessel was stored permanently in the patient's medical record.
Under direct ultrasound guidance, vascular access was obtained using a modified Seldinger technique and a 6 Cameroonian sheath was placed.
3. 16F left common femoral artery (closure: Perclose x2) - Ultrasound was utilized for vascular access. The vessel was visualized under ultrasound and noted to be patent. An image of the vessel was stored permanently in the patient's medical record.
Under direct ultrasound guidance, vascular access was obtained using a modified Seldinger technique and a 8 Cameroonian sheath was placed.
HEMODYNAMIC DATA
LVEDP 27 mmHg
PROCEDURE NARRATIVE:
The patient was prepped and draped in standard sterile fashion. Conscious sedation was provided by the anesthesia staff. 6F right femoral vein and right common femoral artery access was obtained with ultrasound guidance using micropuncture technique
with verification of appropriate arteriotomy location via hand injection angiography. A temporary venous pacing wire was advanced via the right femoral vein to the right ventricle under fluoroscopic guidance with appropriate capture verified. A 5F
pigtail catheter was advanced via the right common femoral artery and seated in the right coronary cusp. Angiography was performed to verify the co-planar angle.
8F left common femoral artery access was obtained with ultrasound guidance using micropuncture technique with verification of appropriate arteriotomy location via hand injection angiography. The arteriotomy was preclosed with two Perclose sutures
followed by replacement of the 8F sheath. Using an AL1 catheter, an Amplatz Extrastiff wire was placed in the descending thoracic aorta. The 8F sheath was removed and the 16 F Baxter E-sheath was inserted over the Extrastiff wire and into the
descending aorta. Heparin 8000 units was given. The AL1 catheter was re-advanced through the E-sheath to the level of the ascending aorta. The Extrastiff wire was exchanged for a soft tipped straight wire which was used to cross the aortic valve and
deposit the AL1 in the LV apex. A J-wire was used to exchange the AL1 for a pigtail catheter in the LV and LVEDP was measured. An Amplatz Extrastiff wire with curved proximal end was advanced through the pigtail catheter and seated in the LV apex.
ACT was checked and confirmed to be >300 seconds.
The valve was brought to the table with orientation and deployment contrast volume verified. The valve was advanced over the Extrastiff wire and into the descending aorta. The balloon was withdrawn, and the valve was mounted on the balloon. The
valve was advanced over the aortic arch and into the aortic valve annulus. The pusher device was withdrawn. Low volume aortography confirmed valve positioning. The valve was deployed during rapid ventricular pacing. The balloon was walked back to
the descending aorta while leaving the wire in place. The patient was resuscitated by anesthesia with recovery of adequate blood pressure. Telemetry demonstrating sinus rhythm with first-degree AV delay unchanged from prior. Aortography demonstrated
good valve positioning, adequate coronary filling, and trace aortic valve insufficiency. Echocardiography confirmed no aortic insufficiency. Mean valve gradient was 4 mmHg. The valve deployment system was removed.
The Baxter E sheath was removed, and hemostasis obtained with the two Perclose sutures. Aortoiliac angiography demonstrated no evidence of iliofemoral dissection/perforation and good runoff below the common femoral artery bilaterally. The pacemaker
and the pigtail catheter were removed. The right femoral artery sheath was removed using a 6F Angioseal. The right femoral venous sheath was removed with manual pressure.
RADIATION: dose 170 mGy; DAP 18.9 Gy*cm2; fluoroscopy time 6.6 min
CONCLUSIONS
1. successful placement of a Baxter MARIANNA S3 Ultra 29 mm transcatheter aortic valve via left transfemoral approach with no acute complications
2. acute on chronic systolic heart failure with elevated filling pressures (LVEDP = 27)
Copy to: Dr. Leslye Webster MD (pastoral assistant); Dr. Darling Zhang MD (PCP)
Signed: Homer Kenny MD, PhD
[2025-05-15] MEDS: ANCEF 10 IV ×2 (08:57)
[2025-05-15 09:34] LABS: Glucose - Point of Care 117 mg/dl (70-99)
[2025-05-15] MEDS: LASIX 20 MG IV (09:44)
--- NOTE | 2025-05-15 10:07 | PTCARENOTE ---
Rec'd report from Bonny from r and d lab technician; rec'd pt back drowsy but easily arousable, AAOx3 w/no c/o CP or SOB. Pt's VSS w/HR in the 50's & BP 131/56 on arrival. Pt is SB w/1st deg AVB & prol QT on telemetry monitoring. Pt w/bilat groin sites
w/dressings C/D/I w/no signs & symptoms of bleeding or hematoma. Pt advised of activity restrictions & length of bedrest. Pt verbalized his understanding. Pt's spouse at bedside, assisting w/calling for lunch for the pt. Pt w/call polo within reach
& plan of care ongoing.
--- NOTE | 2025-05-15 10:24 | CM ---
Chart reviewed. Patient is in the OR today. Patient is independent of ADLS, lives with his in a 2 STH, 0 SOO, 0 DME. Plan is for the patient to return home with CT Transitional RN. CM to follow
[2025-05-15 12:05] LABS: ACT-LR - POC > 397 Seconds (116-155)
--- NOTE | 2025-05-15 12:46 | W.DCSUMMARY ---
Discharge Summary
Discharge Data
Date of Admission: 05/15/25
Date of Discharge: 05/16/25
-
Pending Results: No
Hospital Course
Primary care physician: Dr. Darling Zhang
Outpatient seed yeast operator: Dr. Tyrone Webster
Inpatient consultants: [facility]
Procedures:
1. Left transfemoral TAVR (Baxter ABEL S3 ultra number 26 mm) on 05/15/[address] Gloria and Dr. Kenny
Primary Diagnosis:
1. Severe, symptomatic aortic stenosis
Secondary Diagnoses:
1. Persistent A-fib status post multiple cardioversions/ablations
2. Hypertension
3. Hyperlipidemia
4. Type 2 diabetes
5. Heart failure preserved EF
6. JIMMIE on with use of CPAP
7. Squamous cell CA
8. Anemia
9. BPH
10. Recurrent UTIs
11. Former tobacco misuse
12. Bilateral cataract removal
13. Bilateral total knee arthroscopy
14. Left corneal transplant
HPI: Mr. Neo Bunn is an 80-year-old male with an extensive cardiac past medical history significant for severe, symptomatic aortic stenosis in which he presented for outpatient consultation with the structural heart team at [facility] for
intervention of his aortic valve. He was determined to be suitable for an elective TAVR in which he electively underwent on 05/15/2025. Please see interventionalist and surgeons post operative notes for complete details of procedure.
Hospital course: Mr. Neo Bunn is an 80-year-old male with an extensive cardiac past medical history significant for severe, symptomatic aortic stenosis, heart failure preserved EF, persistent A-fib, hypertension, hyperlipidemia, obstructive
sleep apnea, and type 2 diabetes who presented for outpatient consultation regarding severe symptomatic aortic stenosis with the structural heart team at [facility]. He was determined to be suitable for an elective TAVR in which he was electively
admitted on 05/15/2025 and underwent a left transfemoral TAVR with placement of an Baxter ABEL S3 ultra 29 mm valve. Please see the interventional list and surgeon's postoperative notes for complete details of the procedure. Intraoperatively, LV
EDP was 27 in which he received 20 IV Lasix with adequate response. The patient went directly to the [facility] recovery area following his procedure. Bilateral groin sites and neurological status remained stable and he was transferred to the
interventional unit for the remainder of his recovery. Initial postoperative TTE showed EF 55 to 60%, AV mean gradient of 4 and no paravalvular leak. Postoperative EKG showed ectopic atrial rhythm with 2:1 AV conduction and left axis deviation
with heart rate in 50s, which correlated with his preoperative EKG. On postoperative day 1, he was ambulating within the room without difficulty, tolerating his diet, denied symptoms associated with the procedure. His weight was 100.4 kg at
discharge, with preoperative weight of 102.5 kg. Home medications were resumed with long-term plan to continue Eliquis 5 mg twice daily, initiation of aspirin was not indicated. Repeat EKG on postop day 1 showed type 1 second degree heart block in
which home regiment of labetolol and tikosyn were resumed after consultation with Dr. Kenny. He was discharged home with a remote benefits specialist recruiter which was placed at time of discharge. Repeat TTE showed EF of 55-60%, AV peak/mean gradient of 10/5
without AI. He was deemed stable for discharge with a plan to have home follow-up with the transitional care nursing team. Instructions were provided regarding wound care and activity. A TTE will be repeated in 30 days following TAVR with
outpatient follow-up with his seed yeast operator. Importance of antibiotics prior to dental procedures for endocarditis prophylaxis was further shared to patient upon discharge.
Home medication changes:
- See list provided below
Discharge Plan
-
Patient Disposition: Home (Routine Discharge)
Discharge Diagnosis/Procedures: Left Transfemoral TAVR (Baxter Abel S3 Ultra #29 mm) with Dr. Gloria & Dr. Kenny on 05/15/25
Condition: Good
Diet: Low Fat, Low Cholesterol and 2 Gram Sodium
Activity: As tolerated
Driving Restrictions: No driving for 1 week
Bathing Restrictions: OK to Shower
Others Tests: 30-day follow up echocardiogram 06/17/2025 @ 1:00 at [facility].
Other Services: Cardiac Rehab
Wound Care: No lotions, creams, or powder on procedural sites. Keep open to air. No soaking in pool, tub, or water for 1-week.
Specialty Instructions: Weigh Daily- Call MD for wt gain/loss 3 lbs overnight/5 lbs in 1 week
Referrals:
CT Transitional Care Nurse [Outside]
Referral Note: The Cardiothoracic Transitional Care Nurse will call you to set up a visit in 1-2 days.
[facility]. Cardiac Rehab [Outside]
Referral Note: Cardiac Rehab Orientation appointment is on 06/23/25 AT 10:00.
The Cardiac Rehab gym is located on the first floor of the Cardiovascular [facility].
Mirella Hadley CRNP [Specified Professional Personl, Cardiology] - 06/19/25 11:20 am
Darling Zhang MD [Family Provider, Internal Medicine]
Additional Discharge Medication Instructions: Please consult with your Delivery Clerk regarding the need for antibiotics prior to any dental procedure/cleaning due to having bioprosthetic heart valve.
Prescriptions:
New
acetaminophen 325 mg Tablet
650 mg PO Q6HPRN PRN (Reason: FAUSTIN, mild pain, or fever >101F) Qty: 0 0RF
Continued
acyclovir 400 MG tablet
400 mg PO BID
irbesartan 300 MG tablet
300 mg PO QPM
Eliquis 5 MG tablet
5 mg PO BID
prednisolone sodium phosphate 1 % Drops
1 drp BOTH EYES TID Qty: 0
erythromycin 1 APPLIC ointment
1 applic ophthalmic (eye) QPM
mecobalamin (vitamin B12) [B12 Active] 1,000 mcg Tablet,Chewable
1,000 mcg PO DAILY
psyllium Packet
1 packet PO TID
dapsone 5 % Gel
1 applic TOPICAL BID
multivitamin Tablet
1 tab PO DAILY
dofetilide 250 MCG capsule
250 mcg PO BID
Zirgan 0.15 % Gel
1 drp OPHTHALMIC (EYE) HS
amlodipine 5 mg Tablet
5 mg PO DAILY
labetalol 200 mg Tablet
200 mg PO BID
spironolactone 25 mg Tablet
12.5 mg PO DAILY
simvastatin 5 mg Tablet
5 mg PO QPM
allopurinol 300 mg Tablet
300 mg PO DAILY
tadalafil [Cialis] 5 mg Tablet
5 mg PO DAILY
dapagliflozin propanediol [Farxiga] 10 mg Tablet
10 mg PO DAILY
furosemide 20 MG tablet
20 mg PO DAILY
Discharge Orders:
Discharge Patient (As Directed); Ordered 05/16/25
Ordered By: Sheri Monique
Discharge Date and Time
Print Language: GERMAN
[2025-05-15] MEDS: ANCEF 5 IV (16:07)
[2025-05-15] MEDS: PRED FORTE 1% EYE DROPS 1 DROP BOTH EYES ×2 (16:07→21:15)
[2025-05-15] MEDS: FLUSH (NSS) 2 FLUSH IV (16:08)
[2025-05-15] MEDS: LIPITOR 10 MG PO (18:44)
[2025-05-15] MEDS: ERYTHROMYCIN 0.5% OPHTHALMIC OINTMENT 1 APPLIC OPHTH (18:44)
[2025-05-15] MEDS: AVAPRO 300 MG PO (18:44)
[2025-05-15] MEDS: ZOVIRAX 400 MG PO (19:49)
[2025-05-15] MEDS: NON-FORMULARY ITEM 1 DROP OPHTH (21:15)
--- NOTE | 2025-05-15 22:58 | PTCARENOTE ---
Rec'd pt at change of shift. Pt AAO*3, VSS, and SR on TELE monitor with PVC's. PT denies any pain or discomfort, declining pain medication. Pt verbalizes understanding medications on hold in relation to bradycardia. BL groin sites with dressing
CDI and no firm feeling present on palpation. Pt now resting with call polo in reach. See MAR and flowchart for full pt care and assessment.
--- NOTE | 2025-05-16 00:35 | PTCARENOTE ---
Pt with sustained bijeminy on TELE monitor with HR in the 70's yet asymptomatic, denying chest palpitations. CT HORACIO Xiao made aware. No new orders rec'd at this time. Pt resting with Cpap and call polo in reach. Plan of care ongoing.
[2025-05-16 03:13] VITALS: BP 127/75
[2025-05-16 03:14] VITALS: BP 127/75
[2025-05-16 03:30] VITALS: BMI 30.4
[2025-05-16] MEDS: TYLENOL 650 MG PO (03:34)
[2025-05-16 03:39] LABS: Hematocrit 29.9 % (39.0-52.0); Hemoglobin 10.1 g/dL (13.0-18.0); Mean Corp Hgb Conc. 33.8 g/dL (33.0-37.0); Mean Corpuscular Volume 94.6 fL (80.0-94.0); Platelet Count 177 10^3/uL (130-400); Red Cell Dist. Width 14.8 % (11.5-14.5)
[2025-05-16 04:13] LABS: Blood Urea Nitrogen 43 mg/dl (9-20); Calcium 8.8 mg/dl (8.4-10.2); Carbon Dioxide 18 mmol/L (22-30); Chloride 111 mmol/L (98-107); Estimated Creatinine Clearance 55 ml/min; Glucose 136 mg/dl (70-99); Potassium 5.0 mmol/L (3.5-5.1); Sodium 138 mmol/L (135-145); eGFR 55.53
--- NOTE | 2025-05-16 06:14 | W.PN.CT ---
Today's Communication / Plan
-
-POD #1
-hemodynamically stable
-episode of bradycardia yesterday which improved. +bigeminy overnight. baseline rhythm is junctional with PVCs which he is back in now.
-home tikosyn & BB were held for aden episode
-tolerating RA, spo2 98%
-voiding
-K+ 5 today, monitor
-f/u pending Mag level
-consider d/c to home once HR stable per cardiology
-dispo planning
Assessment / Plan
-
- s/p Left trans femoral TAVR with a 26 mm nominal Baxter TAVR valve by India Gloria & Josemanuel 05/15/25 - POD#1
-Severe
-mild MR
-mild TR
-trace UT
-persistent A fib s/p multiple DCCVs & ablations
-HTN
-HLD
-DM II
-HFpEF
-JIMMIE on home CPAP
-squamous cell Ca
-h/o NC
-h/o pneumonia
-DJD
-anemia of unknown origin
-BPH
-gout
-h/o multiple UTIs
-BL TKA
-BL cataracts
-s/p corneal transplant, L partial
-former smoker
-junctional rhythm, frequent PVCs
-episode of bradycardia 05/15 -> now resolved
Discussed patient care with: Care Team
Subjective
Procedure
s/p Left trans femoral TAVR with a 26 mm nominal Baxter TAVR valve by India Garcia 05/15/25
-
Date of Service: May 16, 2025
Objective Data
-
Lab Results
05/16/25 03:28
05/16/25 03:28
PT 16.8 Sec (11.4-14.6) H 05/06/25 10:00
INR 1.31 05/06/25 10:00
APTT 33.8 Sec (23.4-35.0) 05/06/25 10:00
Vital Signs
Vital Signs
Temp Pulse Resp BP Pulse Ox
99 F 58 16 127/75 98
05/16/25 03:13 05/16/25 03:14 05/16/25 03:13 05/16/25 03:14 05/16/25 03:13
CT Intake/Output/Weight
05/15/25 05/15/25 05/16/25
06:59 18:59 06:59
Intake Total 1460 / 1940 480 / 1940
Output Total 2700 / 2700
Balance -1240 / -760 480 / -760
SaO2: 98
Physical Exam
-
General: Awake, Oriented and AOx3
Cardiovascular: Irregular rate & rhythm (frequent PVCs, junctional)
Respiratory: Clear and Equal
Sternum: Stable
Incision: Clean and Dry
Extremities: No Edema
Data Reviewed
-
Lab Results: Results Reviewed
Medications: Active Meds Reviewed
Chest X-Ray: Image Reviewed
Vital Signs / Labs
-
Vital Signs and Labs:
Temp Pulse Resp BP Pulse Ox
99 F 58 16 127/75 98
05/16/25 03:13 05/16/25 03:14 05/16/25 03:13 05/16/25 03:14 05/16/25 05:19
05/16/25 03:28
05/16/25 03:28
05/15/25 05/15/25 05/15/25
06:23 07:57 09:23
RBC
Hgb
Hct
MCV
MCH
RDW
MPV
Chloride
Carbon Dioxide
BUN
Glucose
POC Glucose 131 H 117 H
POC ACT Low Range > 397 H
05/16/25
03:28
RBC 3.16 L
Hgb 10.1 L
Hct 29.9 L
MCV 94.6 H
MCH 32.0 H
RDW 14.8 H
MPV 10.7 H
Chloride 111 H
Carbon Dioxide 18 L
BUN 43 H
Glucose 136 H
POC Glucose
POC ACT Low Range
[2025-05-16 06:43] LABS: Magnesium 2.1 mg/dl (1.6-2.3)
[2025-05-16 08:27] VITALS: BP 118/45
[2025-05-16] MEDS: ZOVIRAX 400 MG PO (08:29)
[2025-05-16] MEDS: FARXIGA 10 MG PO (08:30)
[2025-05-16] MEDS: NORVASC 5 MG PO (08:30)
[2025-05-16] MEDS: LASIX 20 MG PO (08:31)
[2025-05-16] MEDS: ALDACTONE 12.5 MG PO (08:31)
[2025-05-16] MEDS: THERAGRAN 1 TABLET PO (08:31)
[2025-05-16] MEDS: ZYLOPRIM 300 MG PO (08:31)
[2025-05-16] MEDS: ELIQUIS 5 MG PO (08:32)
[2025-05-16] MEDS: PRED FORTE 1% EYE DROPS 1 DROP BOTH EYES (08:32)
--- NOTE | 2025-05-16 09:45 | W.PN.ANS.POP ---
Anesthesia Post Operative
- Anesthesia Post Op Note
Vital Signs Stable-See Nursing Note: Yes
Airway Patent: Yes
Adequate Pain Control: Yes
Change in Mental Status: No
Current Postoperative Nausea & Vomiting: No
Anesthesia Complications: No
General Anesthetic Recall: No
Unplanned Admission: No
Post Op Hydration Adequate: Yes
[2025-05-16 10:38] VITALS: BP 128/74
[2025-05-16] MEDS: LASIX 40 MG IV (10:42)
--- NOTE | 2025-05-16 10:48 | CM ---
Chart reviewed. Patient is independent of ADLS, lives with his in a 2 STH, 0 SOO, 0 DME. Plan is for the patient to return home with CT Transitional RN. CM to follow
[2025-05-16 12:26] VITALS: BP 119/58
[2025-05-16 13:03] LABS: Blood Urea Nitrogen 41 mg/dl (9-20); Calcium 9.1 mg/dl (8.4-10.2); Carbon Dioxide 23 mmol/L (22-30); Chloride 104 mmol/L (98-107); Estimated Creatinine Clearance 48 ml/min; Glucose 182 mg/dl (70-99); Potassium 4.6 mmol/L (3.5-5.1); Sodium 137 mmol/L (135-145); eGFR 46.77
--- NOTE | 2025-05-16 14:54 | PTCARENOTE ---
pt continues to be sr, bigeminy and junctional on the monitor, vss. pt ambulating in room and tolerating well. pt educated on plan of care and pt tolerated well. pt offers no complaints at this time. bilateral groins CDI. call polo within reach.
[2025-05-16 15:18] VITALS: BP 119/57
--- NOTE | 2025-05-16 16:32 | W.PN.CD ---
Today's Communication / Plan
-
dsicharge to home with radiation monitor
Impression / Plan
-
80 year old man with Afib, CAD, severe s/p TF TAVR 05/16/2025 (Abel S3 Ultra #29). Patient feels well. Cath sites cdi. Tele with AV delay and occasional Type I HB, PVCs. Labs stable. Echo with stable valve gradients. Plan for discharge to home
with radiation monitor and follow up with [facility] cardiology as scheduled.
TTE 05/16/2025
1. Normal biventricular size and systolic function.
2. Ejection fraction is 55-60% by visual assesment.
3. S/P TAVR normally functioning Baxter Abel (29mm) - Peak gradient 10mmHg/Mean gradient 5mmHg. No aortic regurgitation.
4. No significant change from prior on 05/15/2025.
Physical Exam
Vital Signs/Labs
Vital Signs
Temp Pulse Resp BP Pulse Ox
37.4 C 62 18 128/74 99
05/16/25 15:18 05/16/25 10:42 05/16/25 15:18 05/16/25 10:42 05/16/25 15:18
05/15/25 05/16/25 05/17/25
06:59 06:59 06:59
Actual Weight 101.9 kg 100.4 kg
05/16/25 03:28
05/16/25 12:31
PT 16.8 Sec (11.4-14.6) H 05/06/25 10:00
INR 1.31 05/06/25 10:00
APTT 33.8 Sec (23.4-35.0) 05/06/25 10:00
Magnesium 2.1 mg/dl (1.6-2.3) 05/16/25 03:28
05/06/25
10:00
Szo-[id number]-Buqccswzkvc Pept 563
Physical Exam
Constitutional: Comfortable
Cardiovascular: Rhythm & rate is regular
Respiratory: Respiratory effort normal
Neuro/Psych: AO x 3
Data Reviewed
-
Date of Service: May 16, 2025
Medical Decision Making: Reviewed Test Results
Labs: Labs Reviewed by me
--- NOTE | 2025-05-16 16:46 | PTCARENOTE ---
read d/c instructions to pt and pt verbalized understanding. iv and tele removed. pt left via wheelchair with belongings from room, tele monitor, and d/c instructions. pt left via wheelchair w/ staff member.
[2025-05-16] MEDS: PRED FORTE 1% EYE DROPS BOTH EYES (17:02)
[2025-05-21 10:44] LABS: ACT-LR - POC 205 Seconds (116-155)
== END 2025-05-16 17:02 | disposition home or self-care (01) | DRG 266 ==
LOC: IVU 05:32
PROVIDERS: Physician Assistant Medical; ADMITTING PHYSICIAN Thoracic Surgery (Cardiothoracic Vascular Surgery); CONSULT PHYSICIAN Student in an Organized Health Care Education/Training Program; FAMILY PHYSICIAN Internal Medicine
PROC: 02RF38Z Replacement of Aortic Valve with Zooplastic Tissue, Percutaneous Approach (ICD-10-PCS; 2025-05-15)
DX: I35.0 Nonrheumatic aortic (valve) stenosis (principal); Z00.6 Encounter for examination for normal comparison and control in clinical research program; I50.43 Acute on chronic combined systolic (congestive) and diastolic (congestive) heart failure; I48.19 Other persistent atrial fibrillation; E78.00 Pure hypercholesterolemia, unspecified; I11.0 Hypertensive heart disease with heart failure; D64.9 Anemia, unspecified; I44.1 Atrioventricular block, second degree; R00.1 Bradycardia, unspecified; I49.3 Ventricular premature depolarization; E11.9 Type 2 diabetes mellitus without complications; G47.33 Obstructive sleep apnea (adult) (pediatric); I27.20 Pulmonary hypertension, unspecified; I25.10 Atherosclerotic heart disease of native coronary artery without angina pectoris; N40.0 Benign prostatic hyperplasia without lower urinary tract symptoms; M10.9 Gout, unspecified; M19.90 Unspecified osteoarthritis, unspecified site; Z87.891 Personal history of nicotine dependence; Z87.440 Personal history of urinary (tract) infections; Z94.7 Corneal transplant status; Z79.01 Long term (current) use of anticoagulants; Z79.82 Long term (current) use of aspirin; Z79.84 Long term (current) use of oral hypoglycemic drugs
CPT/HCPCS: 33361; 36415; 71045; 71046; 80048; 80053; 81003; 82248; 82962; 83036; 83735; 83880; 85025; 85027; 85347; 85610; 85730; 86850; 86900; 86901; 87070; 93005; 93308; 93321; 93325; C1760; C1769; C1894; Q9967

== ENCOUNTER → 2025-06-12 12:33 | Outpatient (REF) | payer MEDICARE, BC, SELFPAY | LOC: MRI 3T 12:33 | PROVIDERS: ATTENDING PHYSICIAN Student in an Organized Health Care Education/Training Program; FAMILY PHYSICIAN Internal Medicine | DX: N28.9 Disorder of kidney and ureter, unspecified (principal) | CPT/HCPCS: 74183; A9575 ==

== ENCOUNTER → 2025-06-17 12:55 | Outpatient (REF) | payer MEDICARE, BC, SELFPAY | LOC: RCS 12:55 | PROVIDERS: ATTENDING PHYSICIAN Student in an Organized Health Care Education/Training Program; FAMILY PHYSICIAN Internal Medicine | DX: Z95.2 Presence of prosthetic heart valve (principal); I35.0 Nonrheumatic aortic (valve) stenosis | CPT/HCPCS: 93306 ==

== ENCOUNTER → 2025-06-25 07:28 | Outpatient (REF) | payer MEDICARE, BC, SELFPAY ==
[2025-06-25 08:18] LABS: Hematocrit 34.6 % (39.0-52.0); Hemoglobin 11.5 g/dL (13.0-18.0); Mean Corp Hgb Conc. 33.2 g/dL (33.0-37.0); Mean Corpuscular Volume 97.2 fL (80.0-94.0); Nucleated Red Blood Cells % 0 % (-); Platelet Count 154 10^3/uL (130-400); Red Cell Dist. Width 14.2 % (11.5-14.5)
[2025-06-25 08:48] LABS: Microalbumin, Random Urine 3.1 mg/dl (0.6-1.7)
[2025-06-25 08:49] LABS: Microalb - Urine Creatinine 41.500 mg/dl
[2025-06-25 09:19] LABS: ALT (SGPT) 37 U/L (0-50); AST (SGOT) 29 U/L (17-59); Albumin 4.5 g/dl (3.5-5.0); Alkaline Phosphatase 111 U/L (38-126); Blood Urea Nitrogen 43 mg/dl (9-20); Calcium 9.2 mg/dl (8.4-10.2); Carbon Dioxide 21 mmol/L (22-30); Chloride 109 mmol/L (98-107); Glucose 144 mg/dl (70-99); HDL Cholesterol 33 mg/dl; LDL Cholesterol, Calculated 82 mg/dl; Potassium 4.7 mmol/L (3.5-5.1); Sodium 140 mmol/L (135-145); Total Protein 7.9 g/dl (6.3-8.2); Very Low Density Lipoprotein 19 mg/dl (0-30); eGFR > 60.00
[2025-06-25 09:35] LABS: PSA, Total - Screen 0.48 ng/ml (0.0-4.0)
[2025-06-25 09:38] LABS: Ferritin 389.0 ng/ml (17.9-464.0)
[2025-06-25 10:09] LABS: Glycohemoglobin (HgbA1c) 6.4 % (4.0-5.6)
== END ==
LOC: REG 07:28
PROVIDERS: ATTENDING PHYSICIAN Internal Medicine; OTHER PHYSICIAN Internal Medicine Hematology & Oncology; OTHER PHYSICIAN Student in an Organized Health Care Education/Training Program
DX: I10 Essential (primary) hypertension (principal); E11.9 Type 2 diabetes mellitus without complications; E78.2 Mixed hyperlipidemia; D64.9 Anemia, unspecified; R79.89 Other specified abnormal findings of blood chemistry; Z12.5 Encounter for screening for malignant neoplasm of prostate
CPT/HCPCS: 36415; 80053; 80061; 82043; 82570; 82728; 83036; 84443; 85025; G0103

== ENCOUNTER 2025-06-25 16:10 | Outpatient (RCR) | payer MEDICARE, BC, SELFPAY ==
[2025-06-23 11:03] LABS: Glucose - Point of Care 139 mg/dl (70-99)
[2025-06-23 11:39] LABS: Glucose - Point of Care 119 mg/dl (70-99)
[2025-06-25 15:49] LABS: Glucose - Point of Care 106 mg/dl (70-99)
[2025-06-25 16:42] LABS: Glucose - Point of Care 77 mg/dl (70-99)
[2025-06-25 16:51] LABS: Glucose - Point of Care 89 mg/dl (70-99)
== END 2025-06-25 23:59 | disposition home or self-care (01) ==
LOC: CRHB 16:10
PROVIDERS: ATTENDING PHYSICIAN Student in an Organized Health Care Education/Training Program
DX: Z95.4 Presence of other heart-valve replacement (principal)
CPT/HCPCS: 82962; G0422; G0423

== ENCOUNTER 2025-06-27 09:21 | Day surgery (SDC) | payer MEDICARE, BC, SELFPAY ==
[2025-06-27] VITALS (14 sets, daily range): BP systolic 95–175; BP diastolic 46–78; BMI 30.5
[2025-06-27 09:56] LABS: Glucose - Point of Care 139 mg/dl (70-99)
--- NOTE | 2025-06-27 13:25 | ITS.CL.PACE ---
Retirement Consultant - Pacemaker Implant
Pacemaker Implant
Procedure Report:
Date of Procedure: June 27, 2025.
Procedure: Pacemaker Implantation. Left upper extremity venogram.
Indication: The pacemaker is for the treatment of nonreversible symptomatic bradycardia due to a mixture of sinus node dysfunction and second and/or third degree atrioventricular block. He has a new first degree AV block and new LBBB since TAVR on
May 15, 2025. Paroxysmal atrial fibrillation predates TAVR.
Performing physician: Michael Borden MD, [facility].
Observation: Presenting rhythm was sinus with marked first degree AV block and LBBB. At times the QRS was narrower (120 ms) and at times a RBBB conduction was seen. P waves were small. Periods of bradycardia (HR in the 40-50s) noted and heart block
or sinus node dysfunction suspected. Atrial pacing at 90 bpm produced high grade AV block.
Implants:
Pulse Generator: [employer]; Model# [id number]; Serial# [id number].
RA Lead: Medtronic; Model# 5076-525cm; Serial# [id number].
RV Lead: Medtronic; Model# 3830-69cm; Serial# [id number].
Technique: A time out was performed. A 10 mL upper extremity venogram demonstrated patent left axillary and subclavian veins. The cephalic vein was not seen. The procedure site was identified. The patient was anesthetized by the anesthesia service.
Preoperative cefazolin was administered. The patient was prepped and draped in the usual fashion. Local anesthetic was applied to the left prepectoral subcutaneous tissue. A 3 inch incision was made along the left deltopectoral groove. Dissection
was carried to the fascia. The left cephalic vein was not identified in the deltopectoral groove. The axillary vein was accessed with two micropunctures without difficulty. The leads were introduced with hemostatic peel away introducer sheaths. The
RV lead was placed using utilizing the [employer] His delivery catheter ([id number]) that was advanced to the left bundle area as confirmed by fluoroscopy in the GERMAN and RAMACHANDRAN projections. The lead tip was advanced. PVC morphology was reviewed. When a
satisfactory location was identified (W pattern observed) the lead was screwed into position with serial turns. Septal engagement was confirmed with gentle torque applied to the guide sheath. After each series of turns (2-3) unipolar sensed
morphology and impedance, and paced morphology of V1 was analyzed. The lead was further advanced until satisfactory morphology and electrical characteristics were confirmed. The RV lead was placed in the fifth location evaluated. The long guiding
sheath was cut and removed from the RV without change in lead position, impedance, sensing, or capture. The ventricular lead was secured to the pectoralis muscle and fascia with two 0-silk sutures. The atrial lead was placed in the right atrial
appendage. 8 volt pacing from each lead did not capture the diaphragm. The atrial leads was secured to the pectoralis muscle and fascia. A subcutaneous pocket was created with Bovie cautery. Hemostasis was excellent. The leads were appropriately
attached to the device. The pocket was irrigated with antibiotic solution. The device and leads were placed in the pocket. The incision was closed in three layers with absorbable suture. Steri-strips and a silver impregnated dressing were placed.
Estimated blood loss was 5 ml. There were no complications. Fluoroscopy time 15.8 minutes and DAP 6.1 GyCM2. The device was then interrogated after skin closure.
Lead Analysis:
RA lead: P: 1.5 mV; Threshold: 0.75 V @ 0.4 ms; Impedance: 400 ohms.
RV lead (unipolar): R: 8.5 mV; Threshold: 0.9 V @ 0.4 ms; Impedance: 890 ohms.
Paced QRS characteristics: V1 has QR morphology and measures 120 ms in duration, LVAT (stim to peak V5/V6) is 70 ms, and R peak V1 to R peak V6 is 70 ms. Very similar characteristics are present when biplar pacing at 2 or less Volts.
Final Programming: DDDR 60-130 bpm.
Conclusion: Uncomplicated Medtronic pacemaker implant. The pacing system is MRI conditional. Successful LBB pacing was achieved.
Recommendation: Routine post pacemaker care.
cc: Darling Zhang MD and Tyrone Webster MD.
--- NOTE | 2025-06-27 16:21 | W.PN.UPDATE ---
Update Note
Progress Note Update
80 yo WM s/p PPM (Same day). He denies cp, sob, janey diet, site stable, EKG AV dual paced, CXR no PTX, leads in good position. He will resume Eliquis on Monday am. Activity restrictions reviewed. He will have incision check 07/07@ 3pm. He is for d/c
home after 5p if site stable and abx given.
[2025-06-27] MEDS: ANCEF 5 IV (16:34)
== END 2025-06-27 17:00 | disposition home or self-care (01) ==
LOC: CATH 09:21
PROVIDERS: ATTENDING PHYSICIAN Internal Medicine Cardiovascular Disease; FAMILY PHYSICIAN Internal Medicine; OTHER PHYSICIAN Student in an Organized Health Care Education/Training Program
DX: I48.0 Paroxysmal atrial fibrillation (principal); I45.2 Bifascicular block; I44.0 Atrioventricular block, first degree; I49.5 Sick sinus syndrome; I07.1 Rheumatic tricuspid insufficiency; Z79.01 Long term (current) use of anticoagulants; Z79.52 Long term (current) use of systemic steroids; Z79.899 Other long term (current) drug therapy
CPT/HCPCS: 33208; 93308; 93321; 93325; 71045; 82962; 93005; C1769; C1785; C1887; C1898; Q9967

== ENCOUNTER → 2025-08-07 07:23 | Outpatient (REF) | payer MEDICARE, BC, SELFPAY ==
[2025-08-07 08:22] LABS: Hematocrit 35.6 % (39.0-52.0); Hemoglobin 11.6 g/dL (13.0-18.0); Mean Corp Hgb Conc. 32.6 g/dL (33.0-37.0); Mean Corpuscular Volume 100.8 fL (80.0-94.0); Nucleated Red Blood Cells % 0 % (-); Platelet Count 161 10^3/uL (130-400); Red Cell Dist. Width 14.0 % (11.5-14.5)
[2025-08-07 08:56] LABS: HDL Cholesterol 32 mg/dl; LDL Cholesterol, Calculated 59 mg/dl; Very Low Density Lipoprotein 19 mg/dl (0-30)
== END ==
LOC: REG 07:23
PROVIDERS: ATTENDING PHYSICIAN Student in an Organized Health Care Education/Training Program; FAMILY PHYSICIAN Internal Medicine; REFERRING PHYSICIAN Internal Medicine Hematology & Oncology
DX: D64.9 Anemia, unspecified (principal); E78.2 Mixed hyperlipidemia
CPT/HCPCS: 36415; 80061; 85025

== ENCOUNTER 2025-08-08 16:46 | Outpatient (RCR) | payer MEDICARE, BC, SELFPAY ==
[2025-07-18 15:54] LABS: Glucose - Point of Care 128 mg/dl (70-99)
[2025-07-18 16:38] LABS: Glucose - Point of Care 90 mg/dl (70-99)
[2025-07-21 15:51] LABS: Glucose - Point of Care 149 mg/dl (70-99)
[2025-07-21 16:38] LABS: Glucose - Point of Care 113 mg/dl (70-99)
[2025-07-23 15:58] LABS: Glucose - Point of Care 71 mg/dl (70-99)
[2025-07-23 16:38] LABS: Glucose - Point of Care 152 mg/dl (70-99)
[2025-07-23 17:04] LABS: Glucose - Point of Care 117 mg/dl (70-99)
[2025-07-25 15:53] LABS: Glucose - Point of Care 130 mg/dl (70-99)
[2025-07-25 16:40] LABS: Glucose - Point of Care 98 mg/dl (70-99)
[2025-07-28 15:48] LABS: Glucose - Point of Care 128 mg/dl (70-99)
[2025-07-28 16:46] LABS: Glucose - Point of Care 121 mg/dl (70-99)
[2025-07-30 15:44] LABS: Glucose - Point of Care 137 mg/dl (70-99)
[2025-07-30 16:43] LABS: Glucose - Point of Care 92 mg/dl (70-99)
[2025-08-01 15:49] LABS: Glucose - Point of Care 167 mg/dl (70-99)
[2025-08-01 16:56] LABS: Glucose - Point of Care 117 mg/dl (70-99)
[2025-08-04 15:52] LABS: Glucose - Point of Care 124 mg/dl (70-99)
[2025-08-04 16:52] LABS: Glucose - Point of Care 102 mg/dl (70-99)
[2025-08-06 15:53] LABS: Glucose - Point of Care 143 mg/dl (70-99)
[2025-08-06 16:58] LABS: Glucose - Point of Care 88 mg/dl (70-99)
[2025-08-08 15:50] LABS: Glucose - Point of Care 128 mg/dl (70-99)
[2025-08-08 16:50] LABS: Glucose - Point of Care 102 mg/dl (70-99)
== END 2025-08-08 23:59 | disposition home or self-care (01) ==
LOC: CRHB 16:46
PROVIDERS: ATTENDING PHYSICIAN Student in an Organized Health Care Education/Training Program
DX: Z95.4 Presence of other heart-valve replacement (principal)
CPT/HCPCS: 82962; G0422; G0423

== ENCOUNTER 2025-08-22 17:04 | Outpatient (RCR) | payer MEDICARE, BC, SELFPAY | END 2025-08-22 17:05 | disposition home or self-care (01) | LOC: CRHB 17:04 | PROVIDERS: ATTENDING PHYSICIAN Student in an Organized Health Care Education/Training Program; FAMILY PHYSICIAN Internal Medicine | DX: I25.10 Atherosclerotic heart disease of native coronary artery without angina pectoris (principal); Z95.4 Presence of other heart-valve replacement (principal) | CPT/HCPCS: G0422; G0423 ==